=== PATIENT | male | born 1990 | race Caucasian/White ===

== ENCOUNTER 2022-01-06 22:56 | Emergency (ER) | payer OTHER ==
[~2022-01-06] VITALS: Ht 177.8 cm; Wt 68.0 kg
[2022-01-07] MEDS ORDERED: CEPH500 PO (00:35)
== END 2022-01-07 01:04 | disposition home or self-care (01) ==
LOC: ER 22:56
DX: L08.9 Local infection of the skin and subcutaneous tissue, unspecified (principal); Z79.899 Other long term (current) drug therapy
CPT/HCPCS: 90471; 90714; 99282; A9270; J0690

== ENCOUNTER 2022-01-22 12:47 | Emergency (ER) | payer OTHER ==
[~2022-01-22] VITALS: Ht 180.3 cm; Wt 68.0 kg
[~2022-01-22 12:47] MED LIST: CEPH500 PO
[2022-01-22 14:09] LABS: BASOPHILS ABSOLUTE AUTO 0.04 K/mm3 (0.00-0.23); BASOPHILS PERCENT AUTO 0 % (0-2); EOSINOPHILS ABSOLUTE AUTO 0.25 K/mm3 (0.00-0.68); EOSINOPHILS PERCENT AUTO 2 % (0-6); Hematocrit 45.9 % (37.0-53.0); IMMATURE GRAN ABSOLUTE AUTO 0.03 K/mm3 (0.00-0.10); IMMATURE GRAN PERCENT AUTO 0 % (0-1); LYMPHOCYTES ABSOLUTE AUTO 1.59 K/mm3 (0.84-5.20); LYMPHOCYTES PERCENT AUTO 16 % (21-46); MONOCYTES ABSOLUTE AUTO 0.69 K/mm3 (0.16-1.47); MONOCYTES PERCENT AUTO 7 % (4-13); Mean Corpuscular HGB 29.9 pg (26.0-34.0); Mean Corpuscular HGB Conc 32.7 g/dL (31.5-36.5); Mean Corpuscular Volume 91 fL (80-100); Mean Platelet Volume 9.2 fL (9.1-12.4); NEUTROPHILS ABSOLUTE AUTO 7.68 K/mm3 (1.96-9.15); NEUTROPHILS PERCENT AUTO 75 % (41-73); Platelet Count 303 K/mm3 (150-400); RDW Coefficient Variation 13.3 % (11.7-14.2); RDW Standard Deviation 44.9 fL (35.1-46.3); Red Blood Cell Count 5.02 M/mm3 (4.30-5.90); White Blood Cell Count 10.28 K/mm3 (4.00-11.30)
[2022-01-22 14:29] LABS: Albumin, Blood 3.6 g/dL (3.4-5.0); Albumin/Globulin Ratio 0.9 (0.8-1.8); Bilirubin, Total 0.2 mg/dL (0.1-1.0); Bun/Creatinine Ratio 14.6 (12.0-20.0); Calcium, Blood 10.1 mg/dL (8.5-10.1); Creatinine, Blood 0.82 mg/dL (0.60-1.20); Globulin, Blood 4.2 g/dL (2.2-4.0); Total Protein, Blood 7.8 g/dL (6.4-8.2)
[2022-01-22] MEDS ORDERED: CEPH500 PO (16:45)
[2022-01-22] MEDS ORDERED: SULTRIDS PO (16:56)
== END 2022-01-22 17:25 | disposition home or self-care (01) ==
LOC: ER 12:47
PROVIDERS: Physician Assistant
DX: L03.211 Cellulitis of face (principal); L03.011 Cellulitis of right finger; F17.210 Nicotine dependence, cigarettes, uncomplicated
CPT/HCPCS: 36415; 80053; 83605; 85025; 96372; 99283; A9270; J1885